=== PATIENT | male | born 1945 | race Caucasian/White ===

== ENCOUNTER 2019-07-06 20:35 | Inpatient (IN) ==
[2019-07-07] MEDS ORDERED: Ondansetron 4 MG/2 ML VIAL IVP PRN (00:31)
[2019-07-07] MEDS ORDERED: Naloxone 0.4 MG/ML INJ IVP PRN (00:31)
[2019-07-07 04:38] LABS: Basophils # 0.1 K/mcL (0.0-0.2); Basophils % 0.5 %; Eosinophils # 0.3 K/mcL (0.0-0.6); Eosinophils % 2.4 %; Hematocrit 45.9 % (37.5-50.1); Hemoglobin 14.8 g/dL (12.9-16.9); Immature Granulocytes % 1.2 % (0-4); Lymphocytes # 1.6 K/mcL (0.6-4.6); Mean Corpuscular HGB Conc 32.2 g/dL (31.6-35.5); Mean Corpuscular Hemoglobin 28.5 pg (28.0-33.3); Mean Corpuscular Volume 88.3 fL (83.0-100.0); Mean Platelet Volume 10.2 fL (9.4-12.4); Monocytes % 9.8 %; Neutrophils # 7.2 K/mcL (1.6-8.9); Platelet Count 248 K/mcL (140-400); Red Cell Distribution Width 14.3 % (11.5-14.5); Segmented Neutrophils % 70.1 %; White Blood Count 10.3 K/mcL (4.3-11.1)
[2019-07-07 04:40] LABS: INR 1.1; Prothrombin Time 12.5 Seconds (9.4-12.1)
[2019-07-07 05:03] LABS: BUN/Creatinine Ratio 15 (6-26); Blood Urea Nitrogen 15 mg/dL (8-23); Calcium 9.5 mg/dL (8.6-10.3); Carbon Dioxide 28 mEq/L (23-29); Chloride 104 mEq/L (98-107); Glucose 117 mg/dL (70-105); Osmolality,Calculated 292 (280-300); Sodium 140 mEq/L (136-145); eGFR For African Americans > 60 (> 60); eGFR For Non-African Americans > 60 (> 60)
[2019-07-07 05:06] LABS: Chol/HDL Ratio 3.9 (0-4.9)
[2019-07-07 08:22] LABS: Estimated Average Glucose 128 mg/dl
[2019-07-07] MEDS ORDERED: Spironolactone 25 MG TABLET PO SCH (09:00)
[2019-07-07] MEDS: Carbidopa/Levodopa 25/100 TABLET PO SCH ×3 (10:04→21:01)
[2019-07-07] MEDS: Furosemide 40 MG TABLET PO SCH (10:04)
[2019-07-07] MEDS: Aspirin 81 MG TAB.CHEW PO SCH (10:04)
[2019-07-07] MEDS ORDERED: Perflutren Lipid Microsphere 1.3 ML in 0.9 % Sodium Chloride 8.7 ML IVP ONE (13:41)
[2019-07-07] MEDS ORDERED: Isovue-370 500 ML BOTTLE IVP ONE (17:29)
[2019-07-07] MEDS: *HR* Heparin 5,000 UNIT/ML VIAL SQ SCH (21:01)
[2019-07-07] MEDS: Sennosides/Docusate Sodium TABLET PO SCH (21:02)
[2019-07-08] MEDS: *HR* Heparin 5,000 UNIT/ML VIAL SQ SCH ×3 (05:19→21:26)
[2019-07-08] MEDS: Aspirin 81 MG TAB.CHEW PO SCH (10:04)
[2019-07-08] MEDS: Furosemide 40 MG TABLET PO SCH (10:05)
[2019-07-08] MEDS: Carbidopa/Levodopa 25/100 TABLET PO SCH ×3 (10:05→21:26)
[2019-07-08] MEDS: Sennosides/Docusate Sodium TABLET PO SCH (21:26)
[2019-07-09] MEDS: *HR* Heparin 5,000 UNIT/ML VIAL SQ SCH ×3 (05:12→20:13)
[2019-07-09 06:34] LABS: Basophils # 0.1 K/mcL (0.0-0.2); Basophils % 0.5 %; Eosinophils # 0.2 K/mcL (0.0-0.6); Hematocrit 43.8 % (37.5-50.1); Hemoglobin 14.3 g/dL (12.9-16.9); Immature Granulocytes % 1.4 % (0-4); Lymphocytes # 1.1 K/mcL (0.6-4.6); Lymphocytes % 10.8 %; Mean Corpuscular HGB Conc 32.6 g/dL (31.6-35.5); Mean Corpuscular Volume 88.8 fL (83.0-100.0); Mean Platelet Volume 10.2 fL (9.4-12.4); Monocytes % 9.5 %; Neutrophils # 7.9 K/mcL (1.6-8.9); Platelet Count 218 K/mcL (140-400); Red Blood Count 4.93 M/mcL (4.19-5.50); Red Cell Distribution Width 14.1 % (11.5-14.5); Segmented Neutrophils % 75.8 %; White Blood Count 10.4 K/mcL (4.3-11.1)
[2019-07-09 06:54] LABS: BUN/Creatinine Ratio 17 (6-26); Blood Urea Nitrogen 14 mg/dL (8-23); Calcium 8.9 mg/dL (8.6-10.3); Carbon Dioxide 30 mEq/L (23-29); Chloride 103 mEq/L (98-107); Glucose 119 mg/dL (70-105); Magnesium 2.1 mg/dL (1.6-2.6); Osmolality,Calculated 292 (280-300); Potassium 3.5 mEq/L (3.5-5.1); Sodium 140 mEq/L (136-145); eGFR For African Americans > 60 (> 60); eGFR For Non-African Americans > 60 (> 60)
[2019-07-09] MEDS: Carbidopa/Levodopa 25/100 TABLET PO SCH ×3 (10:22→20:13)
[2019-07-09] MEDS: Aspirin 81 MG TAB.CHEW PO SCH (10:22)
[2019-07-09] MEDS: Furosemide 40 MG TABLET PO SCH (10:23)
[2019-07-09] MEDS: Sennosides/Docusate Sodium TABLET PO SCH (20:14)
[2019-07-10 04:58] LABS: Bilirubin,Urine Small (Negative); Blood,Urine Negative (Negative); Clarity,Urine Clear (Clear); Color,Urine Dark Yellow (Yellow); Glucose,Urine (UA) Normal (Normal); Ketones,Urine Negative (Negative); Leukocyte Esterase,Urine Negative (Negative); Nitrite,Urine Negative (Negative); PH,Urine 5.5 pH Units (5.0-8.0); Protein,Urine Negative (Neg-Trace); Specific Gravity,Urine 1.026 (1.010-1.025); Urobilinogen,Urine Normal (Normal)
[2019-07-10] MEDS: *HR* Heparin 5,000 UNIT/ML VIAL SQ SCH ×3 (06:12→20:31)
[2019-07-10 07:33] LABS: Basophils % 0.3 %; Eosinophils # 0.1 K/mcL (0.0-0.6); Eosinophils % 1.4 %; Hematocrit 43.3 % (37.5-50.1); Hemoglobin 14.2 g/dL (12.9-16.9); Immature Granulocytes % 1.1 % (0-4); Lymphocytes # 1.3 K/mcL (0.6-4.6); Lymphocytes % 13.1 %; Mean Corpuscular HGB Conc 32.8 g/dL (31.6-35.5); Mean Corpuscular Volume 88.5 fL (83.0-100.0); Mean Platelet Volume 10.2 fL (9.4-12.4); Monocytes # 1.1 K/mcL (0.0-1.3); Monocytes % 11.1 %; Neutrophils # 7.1 K/mcL (1.6-8.9); Platelet Count 216 K/mcL (140-400); Red Blood Count 4.89 M/mcL (4.19-5.50); Red Cell Distribution Width 14.1 % (11.5-14.5); White Blood Count 9.8 K/mcL (4.3-11.1)
[2019-07-10 07:52] LABS: BUN/Creatinine Ratio 16 (6-26); Blood Urea Nitrogen 13 mg/dL (8-23); Calcium 8.9 mg/dL (8.6-10.3); Carbon Dioxide 28 mEq/L (23-29); Chloride 103 mEq/L (98-107); Glucose 125 mg/dL (70-105); Osmolality,Calculated 292 (280-300); Potassium 3.7 mEq/L (3.5-5.1); Sodium 140 mEq/L (136-145); eGFR For African Americans > 60 (> 60); eGFR For Non-African Americans > 60 (> 60)
[2019-07-10] MEDS: Aspirin 81 MG TAB.CHEW PO SCH (07:58)
[2019-07-10] MEDS: Furosemide 40 MG TABLET PO SCH (07:58)
[2019-07-10] MEDS: Carbidopa/Levodopa 25/100 TABLET PO SCH ×3 (07:58→20:30)
[2019-07-10] MEDS: Sennosides/Docusate Sodium TABLET PO SCH (20:33)
[2019-07-11 04:31] LABS: Basophils # 0.1 K/mcL (0.0-0.2); Basophils % 0.4 %; Eosinophils # 0.1 K/mcL (0.0-0.6); Eosinophils % 0.8 %; Hematocrit 42.9 % (37.5-50.1); Immature Granulocytes % 1.5 % (0-4); Lymphocytes # 1.3 K/mcL (0.6-4.6); Mean Corpuscular HGB Conc 32.6 g/dL (31.6-35.5); Mean Corpuscular Volume 88.8 fL (83.0-100.0); Mean Platelet Volume 10.2 fL (9.4-12.4); Monocytes # 1.3 K/mcL (0.0-1.3); Monocytes % 10.8 %; Neutrophils # 8.8 K/mcL (1.6-8.9); Platelet Count 235 K/mcL (140-400); Red Blood Count 4.83 M/mcL (4.19-5.50); Red Cell Distribution Width 14.1 % (11.5-14.5); Segmented Neutrophils % 75.5 %; White Blood Count 11.6 K/mcL (4.3-11.1)
[2019-07-11 04:41] LABS: BUN/Creatinine Ratio 16 (6-26); Blood Urea Nitrogen 14 mg/dL (8-23); Calcium 8.9 mg/dL (8.6-10.3); Carbon Dioxide 27 mEq/L (23-29); Chloride 100 mEq/L (98-107); Glucose 124 mg/dL (70-105); Osmolality,Calculated 286 (280-300); Potassium 3.7 mEq/L (3.5-5.1); Sodium 137 mEq/L (136-145); eGFR For African Americans > 60 (> 60); eGFR For Non-African Americans > 60 (> 60)
[2019-07-11] MEDS: *HR* Heparin 5,000 UNIT/ML VIAL SQ SCH (06:10)
[2019-07-11] MEDS: Aspirin 81 MG TAB.CHEW PO SCH (09:55)
[2019-07-11] MEDS: Carbidopa/Levodopa 25/100 TABLET PO SCH ×2 (09:56→21:41)
[2019-07-11] MEDS: Furosemide 40 MG TABLET PO SCH (09:56)
[2019-07-11] MEDS ORDERED: CeFAZolin Syr 3,000MG/30 ML 3,000 MG/30 ML SYRINGE IVPB ONE (14:28)
[2019-07-11] MEDS ORDERED: Heparin 1,000 UNITS/500 mL 1,000 ML ONE (14:34)
[2019-07-11] MEDS ORDERED: Lidocaine -MPF 1% 5 ML AMPUL ONE (14:39)
[2019-07-11] MEDS ORDERED: *HR* FentaNYL (PF) 100 MCG/2 ML VIAL ONE (14:41)
[2019-07-11] MEDS ORDERED: Lidocaine -MPF 2% 2 ML VIAL ONE (14:42)
[2019-07-11] MEDS ORDERED: Dexamethasone 4 MG/ML VIAL ONE (14:42)
[2019-07-11] MEDS ORDERED: Ondansetron 4 MG/2 ML VIAL ONE (14:42)
[2019-07-11] MEDS ORDERED: *HR* Propofol 200 MG/20 ML VIAL IVP ONE (14:42)
[2019-07-11] MEDS ORDERED: *HR* Succinylcholine 200 MG/10 ML VIAL IVP ONE (14:42)
[2019-07-11] MEDS ORDERED: *HR* Heparin 5,000 UNIT/ML VIAL ONE ×2 (14:43→17:29)
[2019-07-11] MEDS ORDERED: *HR* Phenylephrine 10 MG/ML VIAL ONE (14:44)
[2019-07-11] MEDS ORDERED: *HR* Remifentanil 2 MG VIAL IVP ONE (14:44)
[2019-07-11] MEDS ORDERED: Vancomycin 1,000 MG, Sodium Chloride IRRigation 1,000 ML IR ONE (15:00)
[2019-07-11] MEDS ORDERED: *HR* Etomidate 40 MG/20 ML VIAL IVP ONE (15:25)
[2019-07-11] MEDS ORDERED: *HR* Labetalol 20 MG/4 ML SYRINGE IVP ONE (18:38)
[2019-07-11] MEDS ORDERED: 0.9 % Sodium Chloride 1,000 ML IVC SCH (19:55)
[2019-07-11] MEDS ORDERED: *HR* HYDROcodone/Acet 5/325 mg TABLET PO PRN ×2 (19:55)
[2019-07-11] MEDS ORDERED: *HR* OxyCODONE Immed Rel 5 MG TABLET PO PRN ×2 (19:55)
[2019-07-11] MEDS ORDERED: *HR* Labetalol 20 MG/4 ML SYRINGE IVP PRN (19:55)
[2019-07-11] MEDS ORDERED: Acetaminophen 325 MG TABLET PO PRN ×2 (19:55)
[2019-07-11] MEDS ORDERED: Naloxone 0.4 MG/ML INJ IVP PRN ×2 (19:55)
[2019-07-11] MEDS ORDERED: Ondansetron 4 MG/2 ML VIAL IVP PRN (19:55)
[2019-07-11 20:47] LABS: Basophils % 0.4 %; Eosinophils % 0.2 %; Hematocrit 42.6 % (37.5-50.1); Hemoglobin 13.4 g/dL (12.9-16.9); Immature Granulocytes % 1.4 % (0-4); Lymphocytes # 0.7 K/mcL (0.6-4.6); Lymphocytes % 6.5 %; Mean Corpuscular HGB Conc 31.5 g/dL (31.6-35.5); Mean Corpuscular Hemoglobin 28.9 pg (28.0-33.3); Mean Platelet Volume 10.1 fL (9.4-12.4); Monocytes # 0.2 K/mcL (0.0-1.3); Platelet Count 217 K/mcL (140-400); Red Blood Count 4.63 M/mcL (4.19-5.50); Red Cell Distribution Width 14.1 % (11.5-14.5); Segmented Neutrophils % 89.5 %; White Blood Count 11.2 K/mcL (4.3-11.1)
[2019-07-11] MEDS ORDERED: Sennosides/Docusate Sodium TABLET PO SCH (21:00)
[2019-07-12] MEDS: *HR* Metoprolol 5 MG/5 ML VIAL IVP SCH ×3 (00:20→11:27)
[2019-07-12] MEDS: ceFAZolin sodium 3,000 MG in 0.9 % Sodium Chloride 100 ML IVPB SCH ×2 (00:23→08:22)
[2019-07-12 04:52] LABS: Basophils % 0.2 %; Hematocrit 40.4 % (37.5-50.1); Hemoglobin 12.8 g/dL (12.9-16.9); Immature Granulocytes % 0.7 % (0-4); Lymphocytes # 0.8 K/mcL (0.6-4.6); Lymphocytes % 6.8 %; Mean Corpuscular HGB Conc 31.7 g/dL (31.6-35.5); Mean Corpuscular Hemoglobin 28.8 pg (28.0-33.3); Mean Corpuscular Volume 90.8 fL (83.0-100.0); Mean Platelet Volume 10.4 fL (9.4-12.4); Monocytes # 0.4 K/mcL (0.0-1.3); Monocytes % 3.9 %; Neutrophils # 9.9 K/mcL (1.6-8.9); Platelet Count 224 K/mcL (140-400); Red Blood Count 4.45 M/mcL (4.19-5.50); Red Cell Distribution Width 13.7 % (11.5-14.5); Segmented Neutrophils % 88.4 %; White Blood Count 11.1 K/mcL (4.3-11.1)
[2019-07-12 05:12] LABS: BUN/Creatinine Ratio 22 (6-26); Blood Urea Nitrogen 18 mg/dL (8-23); Calcium 8.7 mg/dL (8.6-10.3); Carbon Dioxide 23 mEq/L (23-29); Chloride 105 mEq/L (98-107); Glucose 162 mg/dL (70-105); Magnesium 2.1 mg/dL (1.6-2.6); Osmolality,Calculated 293 (280-300); Potassium 4.1 mEq/L (3.5-5.1); Sodium 139 mEq/L (136-145); eGFR For African Americans > 60 (> 60); eGFR For Non-African Americans > 60 (> 60)
[2019-07-12] MEDS ORDERED: *HR* Heparin 5,000 UNIT/ML VIAL SQ SCH (06:00)
[2019-07-12] MEDS: Carbidopa/Levodopa 25/100 TABLET PO SCH ×2 (08:24→15:19)
[2019-07-12] MEDS ORDERED: Aspirin 81 MG TAB.CHEW PO SCH (09:00)
[2019-07-12] MEDS ORDERED: Furosemide 40 MG TABLET PO SCH (09:00)
[2019-07-12 11:15] VITALS: BP 155/64
== END 2019-07-12 16:07 | DRG 38 ==
LOC: 2ANU → SUATTDRO 07-07 14:13 → 2NNU 07-11 19:20
PROVIDERS: ADMIT Internal Medicine; ATTEND Pharmacist